=== PATIENT | female | born 2000 | race Caucasian/White ===

== ENCOUNTER 2021-02-20 20:56 | Emergency (ER) | payer MEDICAID ==
[~2021-02-20] VITALS: Ht 152.4 cm; Wt 75.6 kg
[2021-02-20 21:03] VITALS: BP 123/83
[2021-02-20] MEDS ORDERED: ACET-2708 MT (22:17)
== END 2021-02-20 22:32 | disposition home or self-care (01) ==
LOC: ER 20:56
DX: H61.22 Impacted cerumen, left ear (principal)
CPT/HCPCS: 99283